=== PATIENT | male | born 1980 | race Caucasian/White ===

== ENCOUNTER 2024-02-07 11:18 | Emergency (ER) | payer SELFPAY ==
[2024-02-07 11:28] VITALS: BP 160/89
--- NOTE | 2024-02-07 13:28 | ED.GENMED ---
History of Present Illness
General
Chief Complaint: Back Pain
Source: patient
Exam Limitations: none
Time Seen by Provider: 02/07/24 12:59
Nursing documentation reviewed up to this point in time: agreed with
History of Present Illness
History of Present Illness:
43 y/o M with no sig pmh
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
he says he lifted a grill and felt pain in his lower back
it is worse with flexion and lifting
he has no radiation of pain into legs, no numbness/tingling/weakness
he was doing tylenol twice a day last week and just this morning tried aleve the first time, 3 tabs
pt has pain with flexion and extension
no fever/chills/urinary symptoms
pt says he notified his boss today that this was an injury he had at work
Past History
Past History
ED Past Medical History: None
ED Past Surgical History: Orthopedic
Social History
Tobacco: Non-smoker
Review of Systems
Review of Systems
Allergies reviewed?: Yes
All Other Systems: Not applicable
Phy Exam
Physical Exam
Physical Exam:
GENERAL: Alert , in no apparent distress
CARDIAC: Regular rate and rhythm .
LUNGS: Clear breath sounds bilaterally, no acute respiratory distress, no wheezes/rales/rhonchi
ABDOMEN: Soft, without focal tenderness, no r/g, no cvat, normal bowel sounds
NEUROLOGICAL: Alert and oriented, no focal neuro deficits
SKIN: Warm and dry, skin intact.
BACK: no midline tendenress, no paraspinal muscle tenderness
pain with flexion but ccan flex fully
neg straight leg raise b/l
MUSCULOSKELETAL: No edema, well perfused. neg zechariah's sign
PSYCH: Normal and appropriate interaction.
Course
Vital Signs
Initial and Last Documented VS:
Initial Vital Signs
Temp Pulse Resp BP Pulse Ox
98.7 F 88 18 160/89 100
02/07/24 11:28 02/07/24 11:28 02/07/24 11:28 02/07/24 11:28 02/07/24 11:28
Last Documented Vital Signs
Temp Pulse Resp BP Pulse Ox
98.7 F 87 16 157/83 100
02/07/24 11:28 02/07/24 13:31 02/07/24 13:31 02/07/24 13:31 02/07/24 11:28
MDM/Problems Addressed
Differential Diagnosis Includes:
lumbar strain, muscle spasm
MDM/Problems Addressed:
43 y/o M with a few days of lower back pain nonradiating worse with flexion and lifting after lifting something last week at work
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
no numbness/tingling/weakness
nontender back
pain with full flexion but preserved ROM
neg straight leg raise and no red flag signs
imaging unlikely to be helpful though considered
pt has not tried nsaids yet just one dose
will add muscle relaxant and recommend outpatient PT.
*Critical Care Note
Total Time (30-74mins, 75-104mins- exclusive of procedures): Not Applicable
ED Attending Note
-
Portions of this chart may have been created with voice recognition software.� Occasional wrong word or��sound alike� substitutions may have occurred due to the inherent limitations of voice recognition software.
Discharge Plan
Departure
Patient Disposition: Home (Routine Discharge)
Date of Disposition: 02/07/24
Time of Disposition: 13:41
Patient with high blood pressure during this ER visit?: Yes
Condition: Fair
Covid-19: Not Applicable
Discharge Problem:
Acute lumbar myofascial strain
Instructions: Low Back Pain (DC)
Prescriptions:
New
cyclobenzaprine 10 mg tablet
10 mg PO HS PRN (Reason: muscle spasm) Qty: 10 0RF
Stand Alone Forms: Return to Work
Activity Restrictions/Additional Instructions:
YOU LIKELY PULLED MUSCLES IN YOUR LOEWR BACK
HEAT OFF AND ON
LIDOCAINE PATCH AT NIGHT 12 HOURS ON 12 HOURS OFF
FLEXERIL AT NIGHT 10 MG NEEDED FOR MUSCLE SPASM
ALEVE 2 TABS TWICE A DAY WITH FOOD FOR 3-5 DAYS REGULARLY
TYLENOL 2-3 TIMES A DAY WELL
FOLLOW UP WITH WORKMAN'S [employer]
RETURN FOR: LEG EWAKNESS, NUMBNESS, FEVER, CHILLS, INCONTIENCE OR ANY CONCERNS.
Interventions
Interventions:
*ED COVID-19 Vaccine History Last Done: 02/07/24 11:30
*Nursing Disposition Last Done: 02/07/24 13:50
ED-Musculoskeletal Assessment Last Done: 02/07/24 11:40
Discharge Date and Time
Discharge Date/Time: 02/07/24 13:51
Print Language: TELUGU
[2024-02-07 13:31] VITALS: BP 157/83
== END 2024-02-07 13:51 | disposition home or self-care (01) ==
LOC: EMR 11:18
PROVIDERS: EMERGENCY PHYSICIAN Emergency Medicine; FAMILY PHYSICIAN Internal Medicine
DX: S39.012A Strain of muscle, fascia and tendon of lower back, initial encounter (principal); X50.0XXA Overexertion from strenuous movement or load, initial encounter; Y99.0 Civilian activity done for income or pay
CPT/HCPCS: 99282